=== PATIENT | female | born 1995 | race Caucasian/White ===

== ENCOUNTER 2024-03-21 04:04 | Day surgery (SDC) | payer OTHER ==
[2024-03-17 14:57] VITALS: BMI 50.6
[2024-03-21 07:28] VITALS: RESP 18
[2024-03-21] MEDS: OXYMETAZOLINE 0.05% NASAL SOLUTION 15 ML BOTTLE NS ONE (09:46)
[2024-03-21] MEDS: LIDOCAINE 1%/EPI 1:100000 (20 ML MULTI DOSE VIAL) IJ ONE ×2 (09:46)
[2024-03-21] MEDS ORDERED: oxyCODONE HCL 5 MG TABLET PO PRN (10:00)
[2024-03-21] MEDS ORDERED: ONDANSETRON 4 MG/2 ML VIAL IVPUSH PRN (10:00)
[2024-03-21] MEDS ORDERED: MIDAZOLAM HCL 2 MG/2 ML SINGLE DOSE VIAL ONE (10:18)
[2024-03-21] MEDS ORDERED: PROPOFOL 20 ML ONE ×2 (10:18→12:15)
[2024-03-21] MEDS ORDERED: ROCURONIUM BROMIDE 50 MG/5 ML SYRINGE ONE (10:18)
[2024-03-21] MEDS ORDERED: SUCCINYLCHOLINE CHLORIDE 200 MG/10 ML SYRINGE ONE (10:24)
[2024-03-21] MEDS: ceFAZolin SODIUM 1 GM VIAL IVPB ONE (10:37)
[2024-03-21] MEDS ORDERED: BACITRACIN ZINC 15 GM TUBE TOPICAL OINTMENT ONE (11:25)
[2024-03-21] MEDS ORDERED: SUGAMMADEX SODIUM 200 MG/2 ML VIAL ONE (12:11)
[2024-03-21] MEDS ORDERED: ONDANSETRON 4 MG/2 ML VIAL ONE (12:11)
[2024-03-21] MEDS: LACTATED RINGERS SOLUTION 1,000 ML IV SCH (12:35)
[2024-03-21] MEDS ORDERED: ACETAMINOPHEN INJECTION 100 ML ONE (12:44)
[2024-03-21] MEDS: ACETAMINOPHEN 1000 MG/100 ML BAG IVPB ONE (12:53)
[2024-03-21 16:46] VITALS: BP 134/74; PULSE 89; TEMP 97.8
== END 2024-03-21 16:10 | disposition home or self-care (01) ==
LOC: JASU-SURG 04:04
PROVIDERS: ATTEND Otolaryngology
PROC: 09BQ8ZZ Excision of Right Maxillary Sinus, Via Natural or Artificial Opening Endoscopic (ICD-10-PCS; 2024-03-21)
PROC: 09SM4ZZ Reposition Nasal Septum, Percutaneous Endoscopic Approach (ICD-10-PCS; 2024-03-21)
PROC: 09BR8ZZ Excision of Left Maxillary Sinus, Via Natural or Artificial Opening Endoscopic (ICD-10-PCS; principal; 2024-03-21 09:00)
DX: J32.0 Chronic maxillary sinusitis (principal); J34.2 Deviated nasal septum; R09.81 Nasal congestion
CPT/HCPCS: 81025; 86850; 86900; 86901; 88304-TC; 88311-TC; 94760; J0131